=== PATIENT | female | born 1960 | race Caucasian/White ===

== ENCOUNTER 2020-02-24 17:24 | Emergency (ER) | payer OTHER ==
[~2020-02-24 17:24] MED LIST: LOVENOX60 MG/0.6 SC; XARELTO10 MG PO
[2020-02-24 21:40] LABS: INR 1.7 (0.9-1.2); PTT 33.5 SECONDS (22.2-34.7)
== END 2020-02-24 22:47 | disposition home or self-care (01) ==
LOC: FER 17:24
PROVIDERS: Nurse Practitioner Family
DX: I73.9 Peripheral vascular disease, unspecified (principal); F17.210 Nicotine dependence, cigarettes, uncomplicated; Z86.718 Personal history of other venous thrombosis and embolism; Z79.01 Long term (current) use of anticoagulants
CPT/HCPCS: 36415; 85610; 85730; 93971